=== PATIENT | female | born 1985 | race Caucasian/White ===

== ENCOUNTER → 2020-12-29 02:25 | Outpatient (CLI) | payer OTHER, SELFPAY ==
[2020-12-29 17:20] LABS: SARS-CoV-2 RNA PCR Negative
== END ==
PROVIDERS: Visit Provider Obstetrics & Gynecology Gynecology
DX: Z01.812 Encounter for preprocedural laboratory examination (principal); Z20.822 Contact with and (suspected) exposure to COVID-19
CPT/HCPCS: C9803; U0003; U0005

== ENCOUNTER 2021-01-01 02:24 | Day surgery (SDC) | payer OTHER, SELFPAY ==
[2020-12-29 08:10] VITALS: BMI 45.8
--- NOTE | 2021-01-01 07:31 | PM.HPGS ---
History of Present Illness History of Present Illness Consent: Risks, benefits, and alternatives have been discussed and questions answered. Patient agrees to proceed with procedure. Chief complaint: abnormal uterine bleeding Narrative: Geetha Grewal is a 35 year old female with oligomenorrhea. Patient with cycle 02/09 then 08/13. States she usually only has a few cycles per year and they are heavy. Last cycle lasted 10 days and changed supertampon q hour with pad. Patient was new to my office 09/10. At that time, labs were done showing insulin resistence but no other markers of PCOS. U/s done showed thickened lining at 12 mm with normal ovaries. Patient given Provera x 10 days and recommended to proceed with hysteroscopy and D&C. Risks of infection, Bleeding, and perforation were reviewed. Possible pathology was also discussed. Patient agrees to proceed and questions are answered. Review of Systems Review of Systems: Narrative: not repeated day of surgery; patient states no changes in status All systems reviewed & are unremarkable except as noted in HPI and below (HPI) [facility], [facility] Past Medical History Medical History (Updated 01/01/21 @ 07:39 by Clau Barreto MD) H/O trichomonal vaginitis 2013 (normal spontaneous vaginal delivery) x 5 term 16 week demise Spontaneous Social History Social History Smoking status: Never smoker Second hand tobacco smoke exposure: No Living arrangements: alone Spiritual care concerns: No Meds Home Medications and Allergies Home Medications Medication Instructions Recorded Confirmed Type No Home Medications 12/29/20 12/29/20 History Allergies Allergy/AdvReac Type Severity Reaction Status Date / Time No Known Allergies Allergy Verified 12/29/20 08:09 Exam Narrative: Exam Narrative: wt 290 lbs ht5'6 BMI 46.8 Const: General: no acute distress Nutritional Appearance: obese Orientation/consciousness: patient oriented x3 Resp: Effort & Inspection: normal respiratory effort Auscultation: clear to auscultation bilaterally Cardio: Rate: regular rate Rhythm: regular rhythm GI: GI Palp: Yes Soft to palpation, No Tenderness to palpation present (GI) and No Palpable mass present : External Female Exam: normal external appearance Speculum Exam - Vagina: normal appearance of the vagina and normal vaginal discharge Speculum Exam - Cervix: normal appearance of the cervix Bimanual exam- vagina & uterus: uterine size normal and consistency normal Bimanual Exam- Adnexa, other: normal adnexae and No adnexal tenderness Neuro: General: patient oriented x3 Assessment and Plan Assessment and plan (1) Secondary oligomenorrhea: Code(s): N91.4 - Secondary oligomenorrhea Status: Acute Assessment and Plan: with thickened lining and heavy bleeding a few times per year Plan to proceed with hysteroscopy and D&C.
--- NOTE | 2021-01-01 09:32 | P.PNAN_ITS ---
Anes - Initial Pre Proc Eval Procedure: Operation Date: 01/01/21 11:00 Proposed Procedures p Hysteroscopy Dilation and Curettage - Clau Barreto MD Date/Time: 01/01/21 09:32 Surgeon: Clau Barreto MD Pre Op Diagnosis: abnormal uterine bleeding Patient Data Age: 35 Gender: F Height: 1.68 m Weight: 129 kg Allergies Allergy/AdvReac Type Severity Reaction Status Date / Time No Known Allergies Allergy Verified 12/29/20 08:09 Home Medications Medication Instructions Recorded Confirmed Type No Home Medications 12/29/20 12/29/20 History Patient hx anesthesia problems: none Family hx anesthesia problems: none [facility] Past Medical History Medical History (Updated 01/01/21 @ 07:39 by Clau Barreto MD) H/O trichomonal vaginitis 2014 (normal spontaneous vaginal delivery) x 5 term 16 week demise Spontaneous Social History Social History Smoking status: Never smoker Second hand tobacco smoke exposure: No Living arrangements: alone Spiritual care concerns: No Anes - Eval Final PreProcedure Day of Procedure 01/01/21 09:32 Patient weight: morbidly obese Heart: regular rate and rhythm Lungs: clear to auscultation and normal air movement Airway: Mallampati scale class II Neurological: alert and oriented Last oral intake: >/= 8 hours ASA classification: III Emergent: no Anesthetic plan: proceed Anesthesia type and monitoring: general GIVS and standard monitoring Informed Consent: The patient's anesthetic plan and its attendant risks and benefits were discussed with the patient/family/POA. Questions were solicited and answers provided to the satisfaction of the patient/family/POA.
[2021-01-01] MEDS: LACTATED RINGERS 1,000 ML 30 ML IV CONT (09:55)
--- NOTE | 2021-01-01 09:56 | WPDHPUPDATE1 ---
History and Physical Update Update Date/Time: 01/01/21 09:56 History and Physical has been reviewed, including an updated exam of the patient. There are NO changes in the patient's condition. Risks, benefits, and alternatives have been discussed and questions answered. Patient agrees to proceed with procedure.
[2021-01-01] MEDS: ACETAMINOPHEN 500 MG TABLET 1000 MG PO (09:57)
[2021-01-01 09:59] VITALS: BP 136/97; PULSE 66; RESP 14; TEMP 36.1; O2SAT 100; BMI 45.8
[2021-01-01] MEDS: KETOROLAC 30 MG/ML VIAL (*BKC) IV PUSH (10:20)
[2021-01-01 10:30] VITALS: BP 136/91; PULSE 67; RESP 14; O2SAT 96
--- NOTE | 2021-01-01 10:30 | P.OP_ITS ---
Procedure Note - Detailed Date of Procedure 01/01/21 Pre-op Diagnosis abnormal uterine bleeding Post-op Diagnosis same Procedure Performed D&C hysteroscopy Surgeon Clau Barreto MD Anesthesia MAC and local Findings uterus sounds to 8cm and appears grossly normal Description of Procedure the patient was taken to the operating room and placed under anesthesia in the dorsal lithotomy position. She was prepped and draped in usual sterile fashion. [place] speculum was placed in the vagina and the cervix is grasped on the anterior lip with a tenaculum. The cervix is injected with lidocaine in each quadrant. The uterus is sounded to 8cm. The cervix is serially dilated with Heg[place]. The diagnostic hysteroscope was placed with no abnormalities noted. The hysteroscope was removed in the medium sharp curette used to curette the endometrium until a good uterine cry was noted in all areas. All instruments are removed. Sponge, needle, and instrument counts are correct per the OR staff. Estimated Blood Loss 5 Drains No Packing No Pathology yes ( Endometrial curettings) Complications No immediate complications Condition stable Disposition PACU
[2021-01-01] MEDS: fentaNYL CITRATE INJ (*CRX) 100 MCG/2 ML VIAL 25 MCG IV PUSH ×3 (10:40→11:14)
[2021-01-01 11:00] VITALS: BP 136/82; PULSE 44; RESP 16
[2021-01-01 11:30] VITALS: BP 130/87; PULSE 51; RESP 14
[2021-01-01] MEDS: oxyCODONE HCL (*CRX) 5 MG TAB IR PO (11:42)
== END 2021-01-01 12:08 | disposition home or self-care (01) ==
PROVIDERS: PCP Physician Assistant; Visit Provider Obstetrics & Gynecology Gynecology
PROC: 0U5B8ZZ Destruction of Endometrium, Via Natural or Artificial Opening Endoscopic (ICD-10-PCS; CPT 58563; principal; 2021-01-01 11:00)
DX: N91.4 Secondary oligomenorrhea (principal); E66.01 Morbid (severe) obesity due to excess calories; Z68.42 Body mass index [BMI] 45.0-49.9, adult
CPT/HCPCS: 58558; 88305; A9270; J1885; J2250; J2405; J2704; J3010; J7030; J7120

== ENCOUNTER 2022-02-04 01:55 | Day surgery (SDC) | payer OTHER, SELFPAY ==
--- NOTE | 2022-01-31 13:57 | PC.NURSE ---
Report to the Outpatient Waiting Room, entrance under the green pavilion located off [facility], at time _1000_ on date __02/04/22 . OR Time: _1200 . IF YOUR SURGERY TIME IS ADJUSTED, WE WILL CALL YOU ON Friday02/01/22 TO NOTIFY - You and your visitor will be asked to self-screen and do not enter if you have any COVID symptoms. - Only one visitor and NO children visitors are allowed at this time. - The patient visitor is requested to leave or wait in car when not with patient due to restrictions. - A mask is required within the hospital. Patients may have clear liquids (water, carbonated beverages, clear teas, apple juice) until 3 hours prior to surgery with a maximum of 20 ounces. - No food from midnight until time of surgery - Take the following medications with a SIP of water the morning of surgery: ___n/a Medications to discontinue per physician n/a Date to take last dose____n/a Please no make-up, nail portuguese, hairspray, perfume, deodorant, or body powder the day of surgery. No jewelry (including any body piercings) or valuables the day of surgery, leave them at home. Please take a shower or bath the night before, or the morning of, surgery with an antibacterial soap. Wear comfortable, loose fitting clothing. Children are encouraged to wear pajamas. - Jewelry must be removed prior to entering the operating room. Rings and piercings that are not removed may be cut off. - The hospital will not accept responsibility for valuables. - Please leave all valuables, including medications, at home the day of surgery. If you are going home after surgery, a licensed charter bus driver must drive you home. - NO public transportation without another adult. - We recommend that an adult stay with you for 24 hours following discharge. - We also recommend that you do not drive, make important decision, drink alcoholic beverages, or take any drugs that were not prescribed by your health care provider for at least 24 hours after your discharge time. Follow any additional instructions given to you from your surgeon. If you or anyone in your household have experienced Covid symptoms in the past week, please notify your surgeon or the nurse liaison at the phone number below for possible testing. Telephone instructions given to __AMANDA and asked if any additional questions and then verbalized understanding. Patient advised to call surgeon office or pre surgery nurse liaison [phone] if any additional questions.
--- NOTE | 2022-02-04 07:42 | P.HP_ITS ---
History of Present Illness History of Present Illness Consent: Risks, benefits, and alternatives have been discussed and questions answered. Patient agrees to proceed with procedure. Chief complaint: Missed Ab Narrative: Geetha Grewal is a 37 year old female with a spontaneous . Patient did not follow-up with hCG use or ultrasound in the office. She had an episode of heavy bleeding a went to the [facility] ER on December 26, 2021. At that time beta HCG was 9,854 and ultrasound revealed no intrauterine gestation. Patient failed to follow-up and returned to [facility] January 29. Ultrasound was performed and again showed no intrauterine . The endometrium was noted to be thickened with a focus 1 point 4cm within the endometrium concerning for retained products. The patient then followed up for a preoperative exam and had a beta HCG performed the day of the exam January 30, 2022 which was negative. Due to the findings on ultrasound patient presents for suction D&C. Risks of infection, bleeding, perforation, and possible pathology were reviewed. Patient voices understanding and agrees to proceed. Review of Systems Review of Systems: not repeated day of surgery; patient states no changes in status [facility] Past Medical History Medical History (Updated 02/04/22 @ 07:47 by Clau Barreto MD) H/O trichomonal vaginitis 2014 History of gonorrhea 2014 History of PCOS (normal spontaneous vaginal delivery) x 5 term 16 week demise Spontaneous Social History Social History Smoking status: Never smoker Second hand tobacco smoke exposure: No Alcohol intake: never Substance use: never Substance use type: does not use Living arrangements: with family Spiritual care concerns: No Meds Home Medications and Allergies Home Medications Medication Instructions Recorded Confirmed Type No Home Medications 12/29/20 01/31/22 History Allergies Allergy/AdvReac Type Severity Reaction Status Date / Time No Known Allergies Allergy Verified 12/29/20 08:09 Exam Const: General: healthy appearing and alert Orientation/consciousness: patient oriented x3 GI: GI Palp: Yes Soft to palpation, No Tenderness to palpation present (GI) and No Palpable mass present : External Female Exam: normal external appearance Speculum Exam - Vagina: normal appearance of the vagina and normal vaginal discharge Speculum Exam - Cervix: normal appearance of the cervix Bimanual exam- vagina & uterus: uterine size normal and consistency normal Bimanual Exam- Adnexa, other: normal adnexae and No adnexal tenderness Neuro: General: patient oriented x3 Assessment and Plan Assessment and plan (1) Retained products of conception: Status: Acute Assessment and Plan: Status post complete spontaneous with ultrasound consistent with possible retained products. Plan to proceed with suction D and C.
--- NOTE | 2022-02-04 07:42 | WPDHPUPDATE1 ---
History and Physical Update Update Date/Time: 02/04/22 07:42 History and Physical has been reviewed, including an updated exam of the patient. There are NO changes in the patient's condition. Risks, benefits, and alternatives have been discussed and questions answered. Patient agrees to proceed with procedure.
[2022-02-04] MEDS: LACTATED RINGERS 1,000 ML 30 ML IV CONT (08:45)
--- NOTE | 2022-02-04 08:51 | WPDANESEPPF ---
Anes - Initial Pre Proc Eval Procedure: Operation Date: 02/04/22 10:30 Proposed Procedures p Suction Dilation and Curettage - Clau Barreto MD Date/Time: 02/04/22 08:51 Surgeon: Clau Barreto MD Pre Op Diagnosis: Missed Ab Patient Data Age: 37 Gender: F Height: 1.68 m Weight: 122.5 kg Allergies Allergy/AdvReac Type Severity Reaction Status Date / Time No Known Allergies Allergy Verified 12/29/20 08:09 Home Medications Medication Instructions Recorded Confirmed Type No Home Medications 12/29/20 01/31/22 History Patient hx anesthesia problems: none Family hx anesthesia problems: none Results Review: All pre-operative results and documents have been reviewed as part of the pre-operative evaluation. [facility] Past Medical History Medical History H/O trichomonal vaginitis 2013 History of gonorrhea 2014 History of PCOS (normal spontaneous vaginal delivery) x 5 term 16 week demise Spontaneous Social History Social History Smoking status: Never smoker Second hand tobacco smoke exposure: No Alcohol intake: never Substance use: never Substance use type: does not use Living arrangements: with family Spiritual care concerns: No Anes - Eval Final PreProcedure Day of Procedure 02/04/22 08:51 Patient weight: morbidly obese Heart: regular rate and rhythm Lungs: clear to auscultation Neurological: alert and oriented ASA classification: III Emergent: no Anesthetic plan: proceed Anesthesia type and monitoring: general GIVS and standard monitoring Results Review: All pre-operative results and documents have been reviewed as part of the pre-operative evaluation. Informed Consent: The patient's anesthetic plan and its attendant risks and benefits were discussed with the patient/family/POA. Questions were solicited and answers provided to the satisfaction of the patient/family/POA.
[2022-02-04] MEDS: ACETAMINOPHEN 500 MG TABLET 1000 MG PO (09:00)
[2022-02-04 09:15] VITALS: BP 133/89; PULSE 76; RESP 16; TEMP 36.7; O2SAT 100
[2022-02-04 11:27] VITALS: BP 122/79; PULSE 63; RESP 14; O2SAT 100
--- NOTE | 2022-02-04 11:29 | W.PM.PROC2 ---
Procedure Note - Detailed Date of Procedure 02/04/22 Pre-op Diagnosis Possible retained products of conception Post-op Diagnosis Same Procedure Performed Suction D&C Surgeon Clau Barreto MD Anesthesia MAC and Local Findings Uterus sounds to 9cm. Minimal material obtained with suctioning. Description of Procedure The patient was taken to the operating room and placed under anesthesia in the dorsal lithotomy position. She was prepped and draped in the usual sterile fashion. [place] speculum was placed in the vagina and the cervix was grasped on the anterior tenaculum. The cervix is injected in each quadrant with 1% lidocaine. The uterus is sounded to 9cm. The cervix is serially dilated to an 8 [place]. The 8mm curved suction curette is used to evacuate the uterus. Minimal material was obtained. The sharp curette is then used to sharply curette until a good uterine cry was noted in all areas. One additional pass was taken with the suction curette. All instruments are removed. Sponge, needle, and instrument counts are correct per the OR staff. Estimated Blood Loss 5 Drains No Packing No Pathology Yes (Endometrial curettings) Complications No immediate complications Condition Stable Disposition PACU
[2022-02-04 11:57] VITALS: BP 131/95; PULSE 61; RESP 14; O2SAT 100
[2022-02-04] MEDS: fentaNYL CITRATE INJ (*CRX) 100 MCG/2 ML VIAL 25 MCG IV PUSH (12:20)
[2022-02-04 12:27] VITALS: BP 142/95; PULSE 53; RESP 14; O2SAT 100
[2022-02-04 12:57] VITALS: BP 127/85; PULSE 65; RESP 14; O2SAT 100
== END 2022-02-04 13:10 | disposition home or self-care (01) ==
PROVIDERS: PCP Physician Assistant; Visit Provider Obstetrics & Gynecology Gynecology
PROC: (CPT 59812; principal; 2022-02-04 10:30)
DX: O03.4 Incomplete spontaneous abortion without complication (principal)
CPT/HCPCS: 59812; 36415; 85461; 88305; A9270; J1170; J2250; J2405; J2704; J3010; J7120